=== PATIENT | female | born 1955 | race Caucasian/White ===

== ENCOUNTER → 2018-07-02 | Outpatient (CLI) | payer OTHER | END | disposition home or self-care (01) | LOC: CFH 08:31 | PROVIDERS: ATTEND Obstetrics & Gynecology Gynecology | DX: Z12.31 Encounter for screening mammogram for malignant neoplasm of breast (principal); Z13.820 Encounter for screening for osteoporosis; M85.88 Other specified disorders of bone density and structure, other site; N95.9 Unspecified menopausal and perimenopausal disorder | CPT/HCPCS: 77063; 77080; 77067 ==

== ENCOUNTER → 2020-08-15 | Outpatient (CLI) | payer BC | END | disposition home or self-care (01) | LOC: CFH 08:19 | PROVIDERS: ATTEND Family Medicine | DX: R92.2 Inconclusive mammogram (principal) | CPT/HCPCS: 76641 ==